=== PATIENT | male | born 1960 | race Caucasian/White ===

== ENCOUNTER 2022-03-05 12:54 | Emergency (ER) | payer BC ==
[2022-03-05 14:54] LABS: CARBON DIOXIDE,CO2 25.4 mmol/L (21.0-32.0); POTASSIUM,K 4.5 mmol/L (3.5-5.1)
== END 2022-03-05 15:48 | disposition home or self-care (01) ==
LOC: MW.ED 12:54
DX: N39.0 Urinary tract infection, site not specified (principal); Z79.899 Other long term (current) drug therapy
CPT/HCPCS: 36415; 80053; 81001; 85025; 85610; 87086; 99283